=== PATIENT | male | born 1960 | race Caucasian/White ===

== ENCOUNTER 2018-07-08 06:11 | Day surgery (SDC) | payer BC, SELFPAY ==
[2018-07-08 06:23] VITALS: BP 125/83; PULSE 65; RESP 16; TEMP 36.7; O2SAT 100
--- NOTE | 2018-07-08 06:46 | HPE_ITS ---
Assessment and Plan (1) Encounter for screening colonoscopy: Current visit: Yes Status: Acute P\\ Colonoscopy under sedation Risks, benefits and complications have been reviewed. Complications include but are not limited to bleeding, pain, perforation, missed small lesion/ polyp, sore throat, aspiration and adverse reaction to the medications. Questions were entertained and answered to their satisfaction and they wished to proceed. No guarantees were given or implied. (2) Family history of colon cancer in mother: Current visit: Yes Status: Acute History of Present Illness Narrative: Mr. Saldivar was seen in the office in March for an umbilical hernia and a colonoscopy. He is here now for the Colonoscopy. He has a family history of colon cancer in his mother in her early 70's. His last Colonoscopy was 6 years ago and was normal. He denies any changes in bowel habits, melena, hematochezia, abdominal pain or unintentional weight loss. There have been no new issues since he was seen in March. Review of Systems Constitutional Reports system reviewed and no additional complaints, except as docu Cardiovascular Denies chest pain, Denies chest pain at rest, Denies chest pain with activity, Denies diaphoresis, Denies dyspnea and Denies dyspnea on exertion Respiratory Denies dyspnea and Denies dyspnea on exertion PFS Family History Mother Personal history of malignant neoplasm Father No problems noted. Grandfather No problems noted. Grandfather No problems noted. Grandmother No problems noted. Grandmother No problems noted. PATERNAL GREAT UNCLE Personal history of malignant neoplasm Sister No problems noted. Brother No problems noted. Medical History Depression Erectile dysfunction Family history of colon cancer Umbilical hernia Social History Smoking/Tobacco Use Status: Former Tobacco Use Surgical History Colonoscopy - MAC (07/07/13) Meds Home Medications Medication Instructions Recorded Confirmed Type loperamide [Imodium A-D] 1 mg PO DAILY NS 07/02/13 07/08/18 History sertraline 100 mg PO DAILY #90 tab 10/24/17 07/08/18 Rx sildenafil [Viagra] 100 mg PO PRN #5 tab MDD 100mg 10/24/17 07/08/18 Rx loratadine-pseudoephedrine 1 tab-cap PO DAILY tab-cap 03/05/18 07/08/18 History [Claritin-D 24 Hour Tablet] multivitamin [Multi-Vitamin Daily] 1 ea PO DAILY 03/05/18 07/08/18 History Allergies Allergy/AdvReac Type Severity Reaction Status Date / Time No Known Allergies Allergy Unverified 07/08/18 06:31 Exam Const General: comfortable and no acute distress Resp Effort & Inspection: normal respiratory effort Auscultation: clear to auscultation bilaterally Cardio Rate: regular rate Rhythm: regular rhythm Heart Sounds: no gallops, no murmurs and no rubs
--- NOTE | 2018-07-08 06:46 | W.COLOREPORT ---
Date of service: 07/08/18 Colonoscopy Report Date of procedure: 07/08/18 Pre-op diagnosis general: Screening and Family history Post-op diagnosis procedure note: other (polyps) Procedure: Colonoscopy with polypectomy Surgeon: Priya Sharpe Anesthesia proc note operative: MAC (Wyatt Daniels CRNA) Estimated blood loss (mL): 5 Pathology: other (ascending polyp and descending polyp x 2) Complications: None Disposition: same day Indications: Mr. Saldivar is a pleasant 57 year old male seen in the office to discuss a colonoscopy. He has a family history of colon cancer. His last Colonoscopy was normal. Risks, benefits and complications have been reviewed. Complications include but are not limited to bleeding, pain, perforation, missed small lesion/polyp, sore throat, aspiration and adverse reaction to the medications. Questions were entertained and answered to their satisfaction and they wished to proceed. No guarantees were given or implied. Prep: Miralax/Dulcolax Procedure Start Time: 07:30 Procedure End Time: 08:06 Retraction Time: 19 minutes Findings: 3 polyps Procedure Description: After informed consent was obtained the patient was taken to the procedure room and placed in a left decubitous position. Monitors were applied and a time out was done. The patients name, date of , procedure, allergies to medications and metal in their body was reviewed. The patient was then sedated. Once sedated and comfortable a rectal exam was done. External exam was normal. Internal exam revealed a normal sphincter tone and no palpable masses. The scope was then introduced and retrofelexed. No internal hemorrhoids were identified. The scope was then advanced to the cecum with difficulty. The TI and appendiceal orifice were identified. The prep was good. The scope was then slowly retracted over 19 minutes back into the rectum. 3 polyps were removed. One in the ascending colon and 2 in the descending colon at 40 cm. The scope was removed and the patient was woken up and taken back to Same day surgery in stable condition. The patient tolerated the procedure well and there were no immediate complications. Follow up: The patient should follow up in 3-5 years unless they develop changes in bowel habits or other new gastrointestinal complaints.
--- NOTE | 2018-07-08 06:50 | PDOC.DSDIS_ITS ---
Discharge Plan Disposition Patient Disposition: HOME Condition: Good Discharge Details Reason For Visit: SCREENING / FAM HX Attending Provider: Priya Sharpe Primary Care Provider: Xiang Dickerson Home Meds and New Rx's Prescriptions: Continue loperamide [Imodium A-D] 1 MG/7.5 ML liquid 1 mg PO DAILY RF: 0 sertraline 100 MG tablet 100 mg PO DAILY Qty: 90 RF: 4 sildenafil [Viagra] 100 MG tablet 100 mg PO PRN MDD 100mg Qty: 5 RF: 6 multivitamin [Daily Multi-Vitamin] 1 EACH tablet 1 ea PO DAILY RF: 0 loratadine-pseudoephedrine [Claritin-D 24 Hour] 1 EACH tablet extended release 24 hr 1 tab-cap PO DAILY RF: 0 Discharge Instructions Instructions: Colonoscopy (DC) Additional Instructions: Findings: 3 polyps Follow up: 3-5 years New medications: none Please call if you develop: fevers >101.5 Nausea or Vomiting Abdominal pain that is not transient 1. Because there will be medication in your system for the next 24 hours, you may feel a little sleepy. Your coordination will be affected. Therefore: a. Do not drive or operate dangerous equipment for 24 hours. b. Do not drink alcohol beverages for 24 hours (not even beer). c. Plan to go home and rest for the day. 2. Generally there are no restrictions on your activity after a day or so has gone by, but you may feel a bit fatigued for a few days. 3 After you arrive home you may have a light meal and return to a normal diet as you can tolerate it without feeling sick to your stomach. 4. After surgery, you may feel pain or discomfort. This should be only transient , but if it persists please contact your doctor. 5. If there are any questions regarding the findings of your procedure, please feel free to contact your doctor. 6. If you are unable to contact your doctor with a problem, contact the hospital at [phone]. 7. Continue all your regular medications unless directed otherwise. I understand the above instructions and have no questions. Signature of Patient or Responsible Adult Escort Date/Time Name of Responsible Adult Escort Signature of Nurse Date/Time Stand Alone Forms: Mook Rodriguez (CELSOU) Activity:: Activity as Tolerated Activity:: Activity as Tolerated Diet:: Normal Diet Discharge Orders Discharge Orders: Discharge Order (Routine); Ordered 07/08/18 Ordered By: Priya Sharpe DS: Diagnosis Discharge Diagnosis (1) Encounter for screening colonoscopy: Status: Acute (2) Family history of colon cancer in mother: Status: Acute
[2018-07-08] MEDS: Lactated Ringers 1,000 ML 80 ML IV (06:51)
--- NOTE | 2018-07-08 07:35 | BOWEL_PTH ---
PATIENT: Omar Saldivar LOC: [facility] U#:[id number] AGE/SX: 57/M ROOM: RE07/08/[address]: Priya Sharpe MD : 1960 BED: DIS: 07/08/2018 SPEC #: [id number] RECD: 07/08/18 11:58 STATUS: [place] REQ #: [id number] VIKA: 07/08/18 07:[address]: Priya Sharpe DEPT: Surgical Specimen RECD BY: Geraldine Cortes ENTERED: 07/08/18 11:59 SP TYPE: Bowel OTHR DR: Xiang Dickerson DO Tissues: 1 - BIOPSY BOWEL 2 - BIOPSY BOWEL Procedures: GROSS AND MICRO LEVEL 4 Comments: [id number]
[2018-07-08 08:36] VITALS: BP 110/71; PULSE 62; RESP 18; TEMP 36.6; O2SAT 97
== END 2018-07-08 09:10 | disposition home or self-care (01) ==
PROVIDERS: PCP Emergency Medicine; Visit Provider Surgery
PROC: 0DJD8ZZ Inspection of Lower Intestinal Tract, Via Natural or Artificial Opening Endoscopic (ICD-10-PCS; CPT 45378; principal; 2018-07-08 07:30)
DX: Z12.11 Encounter for screening for malignant neoplasm of colon (principal); Z83.71 Family history of colonic polyps; D12.2 Benign neoplasm of ascending colon; D12.4 Benign neoplasm of descending colon
CPT/HCPCS: 45380; 88305; NC

== ENCOUNTER 2018-07-11 06:15 | Day surgery (SDC) | payer BC, SELFPAY ==
--- NOTE | 2018-07-11 06:24 | HPE_ITS ---
Assessment and Plan (1) Umbilical hernia without mention of obstruction or gangrene: Current visit: No Status: Acute A\\ Umbilical hernia P\\ Umbilical Hernia repair with mesh Risks, benefits and complications were reviewed. Complications include but are not limited to bleeding, pain, infection, wound dehiscence, recurrence, injury to underlying bowel and adverse reaction to the medications. Questions were entertained and answered to their satisfaction and they wished to proceed. No guarantees were given or implied. History of Present Illness Narrative: Mr. Saldivar was seen in March to discuss a colonoscopy and umbilical hernia repair. He underwent a colonoscopy 3 days ago without issues. He is here today to have his umbilical hernia repair. There have been no changes in his health since he was seen a couple of days ago. he has recovered from his Colonoscopy. NO new issues with his hernia. Review of Systems Constitutional Reports system reviewed and no additional complaints, except as docu Cardiovascular Reports system reviewed and no additional complaints, except as docu Respiratory Reports system reviewed and no additional complaints, except as docu PFS Family History Mother Personal history of malignant neoplasm Father No problems noted. Grandfather No problems noted. Grandfather No problems noted. Grandmother No problems noted. Grandmother No problems noted. PATERNAL GREAT UNCLE Personal history of malignant neoplasm Sister No problems noted. Brother No problems noted. Medical History Depression Erectile dysfunction Family history of colon cancer Umbilical hernia Social History current occupation: [employer] Smoking/Tobacco Use Status: Former Tobacco Use alcohol intake: current alcohol intake frequency: a few times a week substance use type: does not use Surgical History Colonoscopy - MAC (07/07/13) Meds Home Medications Medication Instructions Recorded Confirmed Type loperamide [Imodium A-D] 1 mg PO DAILY NS 07/02/13 07/08/18 History sertraline 100 mg PO DAILY #90 tab 10/24/17 07/08/18 Rx sildenafil [Viagra] 100 mg PO PRN #5 tab MDD 100mg 10/24/17 07/08/18 Rx loratadine-pseudoephedrine 1 tab-cap PO DAILY PRN tab-cap 03/05/18 07/08/18 History [Claritin-D 24 Hour] multivitamin [Daily Multi-Vitamin] 1 ea PO DAILY 03/05/18 07/08/18 History Allergies Allergy/AdvReac Type Severity Reaction Status Date / Time No Known Allergies Allergy Unverified 07/08/18 06:31 Exam Resp Effort & Inspection: normal respiratory effort Auscultation: clear to auscultation bilaterally Cardio Rate: regular rate Rhythm: regular rhythm Heart Sounds: no gallops, no murmurs and no rubs GI Palpation: soft, no hepatosplenomegaly and hernia umbilical (reducible)
--- NOTE | 2018-07-11 06:31 | W.PM.DSUDISC ---
Discharge Plan Disposition Patient Disposition: HOME Condition: Good Discharge Details Reason For Visit: Umbilical hernia Attending Provider: Priya Sharpe Primary Care Provider: Xiang Dickerson Home Meds and New Rx's Prescriptions: New acetaminophen [Tylenol 8 Hour] 650 mg tablet extended release 650 mg PO Q6H PRN PRN (Reason: pain) Qty: 30 RF: 0 ibuprofen 600 mg tablet 600 mg PO QID PRN (Reason: pain) Qty: 30 RF: 0 Continue loperamide [Imodium A-D] 1 MG/7.5 ML liquid 1 mg PO DAILY RF: 0 sertraline 100 MG tablet 100 mg PO DAILY Qty: 90 RF: 4 sildenafil [Viagra] 100 MG tablet 100 mg PO PRN MDD 100mg Qty: 5 RF: 6 multivitamin [Daily Multi-Vitamin] 1 EACH tablet 1 ea PO DAILY RF: 0 loratadine-pseudoephedrine [Claritin-D 24 Hour] 1 EACH tablet extended release 24 hr 1 tab-cap PO DAILY PRNRF: 0 Discharge Instructions Instructions: Ventral Hernia Repair (DC) Additional Instructions: Please call if you develop: fevers >101.5 Nausea or Vomiting Redness and hot to the touch around the incision Thick discharge from the incision Worsening abdominal pain Medication: Ibuprofen 600 mg every 6 hours as needed Tylenol 1000 mg every 6 hours as needed for pain Miralax as needed for constipation Other: may use ice over the incision as needed for swelling, bruising and pain May shower starting tomorrow Do not soak the incision for 1 week 1. Because there will be medication in your system for the next 24 hours, you may feel a little sleepy. Your coordination will be affected. Therefore: a. Do not drive or operate dangerous equipment for 24 hours. b. Do not drink alcohol beverages for 24 hours (not even beer). c. Plan to go home and rest for the day. 2. Generally the only restriction on your activity is no lifting, pulling or pushing more then 20 lb for 4 weeks. You may feel fatigued for 2-4 weeks. 3 After you arrive home you may have a light meal and return to a normal diet as you can tolerate it without feeling sick to your stomach. 4. After surgery, you may feel pain or discomfort. Take the medications as prescribed. 5. If there are any questions regarding the findings of your procedure, please feel free to contact your doctor. 6. If you are unable to contact your doctor with a problem, contact the hospital at [phone]. 7. Continue all your regular medications unless directed otherwise. 8. IF you are being prescribed a Narcotic pain medication. Narcotic pain medications have an addiction potential for everyone. It is important that you take the medication as prescribed There is a limit on how many tablets we can prescribed, this has been decided by the state Please keep the medications in a secure place and do not let anyone know you have them at home If you have medication left over please discard them by crushing them in a little water and mixing in used coffee grounds or cat litter and putting in the trash. I understand the above instructions and have no questions. Signature of Patient or Responsible Adult Escort Date/Time Name of Responsible Adult Escort Signature of Nurse Date/Time Referrals: Priya Sharpe MD [ [facility] STAFF PHYSICIAN] - 07/23/18 2:00 pm Activity:: No lifting,pulling or pushing >20 lb x 4 weeks Diet:: As Tolerated DS: Diagnosis Discharge Diagnosis (1) Umbilical hernia without mention of obstruction or gangrene: Status: Acute
[2018-07-11 06:35] VITALS: BP 127/85; PULSE 65; RESP 18; TEMP 36.2; O2SAT 98
[2018-07-11] MEDS: Lactated Ringers 1,000 ML 80 ML IV (06:47)
[2018-07-11] MEDS: Normal Saline 10 ML VIAL IJ (07:45)
[2018-07-11] MEDS: Lidocaine 2% Pres-Free 5 ML VIAL 10 ML (08:02)
[2018-07-11 08:46] VITALS: BP 121/74; PULSE 67; RESP 17; TEMP 36.6; O2SAT 95
[2018-07-11 08:50] VITALS: BP 116/69; PULSE 67; RESP 17; TEMP 36.6; O2SAT 95
[2018-07-11 08:55] VITALS: BP 130/80; PULSE 67; RESP 16; TEMP 36.6; O2SAT 97
[2018-07-11 09:10] VITALS: BP 135/87; PULSE 72; RESP 15; TEMP 36.6; O2SAT 97
[2018-07-11 10:01] VITALS: BP 133/77; PULSE 71; RESP 16; TEMP 35.6; O2SAT 97
--- NOTE | 2018-07-11 11:07 | ROE_ITS ---
REPORT OF OPERATIVE PROCEDURE DATE OF PROCEDURE July 11, 2018 PREOPERATIVE DIAGNOSIS Reducible umbilical hernia. POSTOPERATIVE DIAGNOSIS Reducible umbilical hernia. PROCEDURE Umbilical hernia repair with Ventralex hernia patch. ANESTHESIA 1. General anesthesia with LMA 2. Bilateral rectus muscle block ANESTHESIA PROVIDER Shadi Stewart C.R.N.A. SURGEON Nehemias Sharpe M.D. AGRONOMY LOCATION MANAGER HAKEEM Her None. ESTIMATED BLOOD LOSS Less than 20 cc. COMPLICATIONS No immediate complications INDICATIONS FOR PROCEDURE Mr. Saldivar is a pleasant 57-year-old gentleman with a reducible umbilical hernia, which started to ca use him discomfort with activities. The risks, benefits, and complications were reviewed with the pat ient and he wished to proceed. No guarantees were given or implied. FINDINGS A 2 x 2 cm umbilical hernia defect. DESCRIPTION OF PROCEDURE After informed consent was obtained, the patient was taken to the Operating Room and placed in the kim pine position. Monitors were applied and he was placed under general anesthesia with LMA by Shadi cardenas CRNA. Michelle MoultonNAlka, then did a bilateral rectus muscle block for postoperative pain. Please see separate dictation for this. Once the block was in place, SCDs were applied and a timeout was done. The patient's name, date of , procedure site and type, allergies to medications and D VT prophylaxes, and antibiotic given were all reviewed. Fire risk was also reviewed. The abdomen was re-prepped and draped in a sterile surgical fashion. 5 cc of 2% lidocaine was injected in the dermis underneath the umbilicus. An incision was made with a #15-blade and dissection was done with cautery through subcutaneous tissue down to the fascia. A Ирина was then used to get around the umbilical st alk and this was cut using cautery. Once the umbilical stalk was transected, the sac was identified a nd trimmed down to the fascia and removed. Some bleeding was noted from the fascia and this was caref ully cauterized. The bowel was kept out of reach with gently pushing down on it with a hemostat. Once the bleeding was stopped, a 2.6-inch round Ventralex mesh was placed under the fascia and secured in four corners with #2-0 Prolene. Once secured in place, the fascia was reapproximated using #0- Vicry l. The umbilical stalk was then reattached to the fascia using #0-Vicryl. The subcutaneous tissue was reapproximated with #3-0 Vicryl and the dermis was closed with #4-0 Vicryl running suture. The skin was cleaned and dried, and then Skin Affix was applied. The patient tolerated the procedure well. Sponge, instruments and needle counts were correct at the end of the case. At this point, the patient was woken up, the LMA was removed and he was taken to Recovery in stable c ondition.
== END 2018-07-11 10:40 | disposition home or self-care (01) ==
PROVIDERS: PCP Emergency Medicine; Visit Provider Surgery
PROC: (CPT 49585; principal; 2018-07-11 07:30)
DX: K42.9 Umbilical hernia without obstruction or gangrene (principal)
CPT/HCPCS: 49585; 76942; NC; C1781; J0131; J0690; J1100; J1885; J2250; J2405

== ENCOUNTER 2020-08-27 02:01 | Outpatient (CLI) | payer BC, SELFPAY ==
[2020-08-30 21:56] LABS: Patient Race White; SARS-CoV-2 RNA Undetected (Undetected); SARS-CoV-2 Specimen Source Nasal
== END 2020-08-27 02:21 ==
PROVIDERS: PCP Emergency Medicine; Visit Provider Emergency Medicine
DX: Z11.59 Encounter for screening for other viral diseases (principal)
CPT/HCPCS: U0003

== ENCOUNTER 2021-01-17 03:22 | Outpatient (CLI) | payer BC, SELFPAY ==
[2021-01-18 14:14] LABS: COVID-19 RT-PCR UVMMC Result Negative (Negative)
== END 2021-01-17 03:23 | disposition home or self-care (01) ==
LOC: LBO 03:22
PROVIDERS: PCP Emergency Medicine; Visit Provider Emergency Medicine
DX: Z20.822 Contact with and (suspected) exposure to COVID-19 (principal); Z01.818 Encounter for other preprocedural examination
CPT/HCPCS: U0003

== ENCOUNTER 2021-11-09 03:31 | Outpatient (CLI) | payer BC, SELFPAY ==
[2021-11-09 10:11] LABS: Calculated LDL 106 mg/dL (<100); Cholesterol 174 mg/dL (<200); HDL Cholesterol 41 mg/dL (40-60); Triglyceride 138 mg/dL (<150)
[2021-11-09 16:43] LABS: PSA, Screening 0.6 ng/mL (0.0-3.5)
== END 2021-11-09 03:32 | disposition home or self-care (01) ==
LOC: LBO 03:31
PROVIDERS: Emergency Medicine; PCP Family Medicine; Visit Provider Family Medicine
DX: Z00.00 Encounter for general adult medical examination without abnormal findings (principal); Z12.5 Encounter for screening for malignant neoplasm of prostate
CPT/HCPCS: 36415; 80061; 84153

== ENCOUNTER 2022-03-31 11:51 | Outpatient (CLI) | payer BC, SELFPAY ==
--- NOTE | 2022-03-31 11:18 | DI.RAD_ITS ---
Exam(s) XR FINGER RT MIDDLE EXAM: XR FINGER RT MIDDLE CLINICAL HISTORY: Injury right 3rd digit--S69.90XA. TECHNIQUE: 2D digital imaging was performed of the right finger. Three views were obtained. PA/AP, oblique, and lateral views were obtained. COMPARISON: No exams were available for comparison FINDINGS: BONES: There is a nondisplaced oblique fracture through the distal aspect of the middle phalanx of th e right middle finger. The fracture appears to extend into the head. No bony destructive lesion is seen. JOINTS: No dislocation present. SOFT TISSUE: There is mild soft tissue swelling of the middle finger. IMPRESSION: Nondisplaced oblique fracture through the head of the middle phalanx of the right middle finger. DATA REPOSITORY: RADIATION DOSE DELIVERED:
== END 2022-03-31 12:11 ==
LOC: DI 11:55
PROVIDERS: Visit Provider Physician Assistant
DX: S62.652A Nondisplaced fracture of middle phalanx of right middle finger, initial encounter for closed fracture (principal); X58.XXXA Exposure to other specified factors, initial encounter
CPT/HCPCS: 73140

== ENCOUNTER 2022-04-04 10:16 | Day surgery (SDC) | payer BC, SELFPAY ==
--- NOTE | 2022-04-03 15:31 | W.COLOREPORT ---
Colonoscopy Report Date of procedure: 04/04/22 Pre-op diagnosis general: S. serrated/+CRC- Mother Post-op diagnosis procedure note: other (normal) Surgeon: Janey Tomas Anesthesia Type: General:No Airway Estimated blood loss (mL): 0 Pathology: none sent Complications: None Disposition: same day Prep: Miralax/Dulcolax Procedure Description: After informed consent was obtained the patient was taken to the procedure room and placed in a left decubitous position. Monitors were applied and a time out was done. The patients name, date of , procedure, allergies to medications and metal in their body was reviewed. The patient was then sedated. Once sedated and comfortable a rectal exam was done. External exam was normal. Internal exam revealed a normal sphincter tone and no palpable masses. The scope was then introduced and retrofelexed. No internal hemorrhoids were identified. The scope was then advanced to the cecum w/out difficulty. The TI and appendiceal orifice were identified. The prep was BBPS 3 in all segments for a total of 9. The scope was then slowly retracted over 8 minutes back into the rectum. There are no polyps/avm's/diverticula visualized. The scope was removed and the patient was woken up and taken back to Same day surgery in stable condition. The patient tolerated the procedure well and there were no immediate complications. Follow up: The patient should follow up in 5 years unless they develop changes in bowel habits or other new gastrointestinal complaints.
--- NOTE | 2022-04-03 15:32 | PDOC.DSDIS_ITS ---
Discharge Plan Disposition Patient Disposition: HOME Condition: Good Discharge Details Reason For Visit: colon scope Attending Provider: Janey Tomas Primary Care Provider: Pamella Mullen Home Meds and New Rx's Prescriptions: Continued aspirin 81 mg tablet,delayed release (DR/EC) 81 mg PO DAILY loperamide [Imodium A-D] 1 MG/7.5 ML liquid 1 mg PO DAILY multivitamin [Daily Multi-Vitamin] 1 EACH tablet 1 ea PO DAILY loratadine-pseudoephedrine [Claritin-D 24 Hour] 1 EACH tablet extended release 24 hr 1 tab-cap PO DAILY PRN sildenafil [Viagra] 100 mg tablet 100 mg PO PRN MDD 100mg Qty: 5 6RF sertraline 100 mg tablet 100 mg PO DAILY Qty: 90 4RF acetaminophen [Tylenol 8 Hour] 650 mg tablet extended release 650 mg PO Q6H PRN PRN (Reason: pain) Qty: 30 0RF ibuprofen 600 mg tablet 600 mg PO QID PRN (Reason: pain) Qty: 30 0RF Discontinued bisacodyl [Dulcolax (bisacodyl)] 5 mg tablet,delayed release (DR/EC) 5 mg PO ONCE Qty: 4 0RF Rx Instructions: Take according to provider's instructions for colonoscopy prep. polyethylene glycol 3350 17 gram/dose powder 17 g PO ONCE Qty: 238 0RF Rx Instructions: To be taken as directed by prescriber's office for colonoscopy prep. Discharge Instructions Additional Instructions: DSU Colonoscopy Post- Op Instructions Instructions for Everyone who is given Anesthesia: For your safety, please do the following for the next twenty-four (24) hours: *Do Not operate a motor vehicle (car, truck, motorcycle, etc.) *Do Not drink alcoholic beverages or use any recreational drugs for the first 24 hours or while taking pain medications. The medications in your body may have a reaction that can be dangerous. *Do Not make any important decisions or sign any important papers. Findings: normal Follow up: 5 years 1. No lifting over 20 pounds or strenuous activity for the first 24 hours after your procedure. After 24 hours there are no restrictions on your activity but you may feel fatigued for a few days. 2. After you arrive home you may have a light meal and return to your normal diet as you can tolerate it without feeling sick to your stomach. 3. You may have a bloated, gaseous feeling in your belly (abdomen) after a colonoscopy. Passing gas and belching will help. Walking or lying down on your left side with your knees flexed may relieve the discomfort. Call the office at [phone] (Office) or [phone] (Hospital) right away if you notice any of the following: a.Vomiting of blood or ?coffee ground stools?. b.Rectal bleeding 1Tbsp, blood clots or continuous bleeding. c.Severe belly (abdominal) pain. d.A hard distended belly (abdomen) and an inability to pass gas. 4. Please don?t expect to have a normal BM (bowel movement) for 2-3 days after your procedure. 5. If there are questions regarding the findings of your procedure, please contact your doctor 6. If you are unable to contact your doctor with a problem, contact the hospital at [phone]. 7. Continue all your regular medications unless directed otherwise. I understand the above instructions and have no questions. Signature of Patient or Adult Escort Name of Responsible Adult Escort Signature of Nurse Date/Time Activity:: See above Diet:: See above Discharge Orders Discharge Orders: Discharge Order (Routine); Ordered 04/03/22 Ordered By: Janey Tomas
[2022-04-04 10:32] VITALS: BP 131/87; PULSE 57; RESP 16; TEMP 36.4; O2SAT 100
--- NOTE | 2022-04-04 10:52 | W.ANESPRE ---
General Info Date of Service Date Performed: 04/04/22 Height: 6 ft 1.5 in Weight: 92.6 kg Body Mass Index (BMI): 26.5 Surgical Procedure: Operation Date: 04/04/22 10:05 Proposed Procedure Side Surgeon lyn Tomas, DO Meds Allergies and Home Medications Allergies Allergy/AdvReac Type Severity Reaction Status Date / Time No Known Allergies Allergy Verified 04/04/22 10:36 Home Medication Medication Instructions Recorded Imodium A-D 1 mg/7.5 mL oral 1 mg PO DAILY 07/02/13 liquid (loperamide) loratadine-pseudoephedrine ER 10 1 tab-cap PO DAILY PRN 03/05/18 mg-240 mg tablet,extended [id number] (Claritin-D 24 Hour) multivitamin (Daily Multi-Vitamin 1 ea PO DAILY 03/05/18 tablet) acetaminophen 650 mg 650 mg PO Q6H PRN PRN pain #30 tabs 07/11/18 tablet,extended release (Tylenol 8 Hour) ibuprofen 600 mg tablet 600 mg PO QID PRN pain #30 tabs 07/11/18 aspirin 81 mg tablet,delayed 81 mg PO DAILY 09/14/20 release sildenafil 100 mg tablet (Viagra) 100 mg PO PRN #5 tabs 06/24/21 sertraline 100 mg tablet 100 mg PO DAILY #90 tabs 07/15/21 bisacodyl 5 mg tablet,delayed 5 mg PO ONCE #4 tabs 03/24/22 release (Dulcolax (bisacodyl)) polyethylene glycol 3350 17 17 g PO ONCE #238 grams 03/24/22 gram/dose oral powder Current Visit Medications: Current Medications Generic Name Dose Route Start Last Admin Trade Name Freq PRN Reason Stop Dose Admin Hyoscyamine Sulfate 0.125 mg 04/04/22 06:00 Hyoscyamine 0.125 Mg Sl/Oral/Chew SL 04/04/22 23:59 DIRECTED PRN Ringer's Solution 1,000 mls @ 80 mls/hr 04/04/22 06:00 IV 05/03/22 23:59 INFUSION GWYN IV Miscellaneous Supplies 1 each 04/04/22 06:00 Iv Access IV 05/03/22 23:59 DIRECTED GWYN Ondansetron HCl 4 mg 04/04/22 06:00 Ondansetron 4 Mg/2 Ml Vial IVP 04/04/22 23:59 Q4H PRN PRN Nausea / Vomiting Sodium Chloride 0 ml 04/04/22 06:00 Normal Saline Flush 10 Ml Syr IV 05/03/22 23:59 PRN PRN Sodium Chloride 0 ml 04/04/22 06:00 Normal Saline 10 Ml Vial IJ 05/03/22 23:59 DIRECTED PRN Sterile Water 0 ml 04/04/22 06:00 Water,Injection,Sterile 10 Ml Vial IJ 05/03/22 23:59 DIRECTED PRN PFSH Active Problems Active Problems: Problem Status Onset Code Encounter for annual physical exam Z00.00 Family history of colon cancer Depression Smoker F17.200 Sessile colonic polyp ~07/2018 K63.5 Umbilical hernia 03/16/15 K42.9 Tobacco chew use 10/10/16 Z72.0 Smoker F17.200 Polyp of colon 07/17/13 K63.5 Male erectile disorder 06/20/13 N52.9 Incomplete RBBB 10/09/14 I45.10 Family history of colon cancer 06/20/13 Z80.0 Depressive disorder F32.9 Umbilical hernia without mention of obstruction or gangrene K42.9 Family history of colon cancer in mother Z80.0 Encounter for screening colonoscopy Z12.11 Medical History Medical History Erectile dysfunction Umbilical hernia (~07/2018) Surgical History Surgical History (Updated 04/04/22 @ 10:57 by Mady Chow) Colonoscopy - MAC (07/08/18) H/O surgical amputation of finger H/O umbilical hernia repair (~07/11/18) Tobacco Smoking/Tobacco Use Status: Former Tobacco Use Smokeless tobacco user: chewing tobacco Passive smoking exposure: Yes Second hand exposure: Yes Alcohol Alcohol Intake: former Substance Use Substance use: Daily Details: chews tobacco daily-last 04.03.22 Vital Signs and Lab Results Vital Signs Most Recent Vital Signs in EMR: Most Recent Vital Signs Temp Pulse Resp BP Pulse Ox 36.4 C L 57 L 16 131/87 100 04/04/22 10:32 04/04/22 10:32 04/04/22 10:32 04/04/22 10:32 04/04/22 10:32 Lab Results Blood Type / Crossmatch: No Data to Display Complete Blood Count: No Data to Display Complete Metabolic Panel: No Data to Display Liver Function Panel: No Data to Display Coagulation Panel: No Data to Display Cardiac Panel: No Data to Display Arterial Blood Gas: No Data to Display Venous Blood Gas: No Data to Display Pancreas Panel: No Data to Display Thyroid Panel: No Data to Display Infectious Disease: No Data to Display Blood Cultures: No Data to Display Toxicology Panel: No Data to Display Anesthesia Assessment and Plan Anesthesia History Personal History: No History of Anesthesia Complications Family History: No Family History of Anesthesia Complications Exercise Tolerance Exercise Tolerance: Metabolic Equivalents>4 Pertinent Negatives Pertinent Negatives: No Symptoms of GERD, No Major Cardiovascular Symptoms or Complaints, No Major Pulmonary Symptoms or Complaints and No History of CVA/TIA Cardiac & Pulmonary Exam Cardiac Exam: Normal S1/S2 Heart Sounds Pulmonary Exam: Clear Bilateral Breath Sounds Implantable Cardiac Device Does patient have a Pacemaker or an ICD?: No Airway Exam Known Difficult Airway: No Mallampati Class: 2 Mouth Opening: Normal (> 3cm) Thyromental Distance: Greater than 3 cm Neck Range of Motion: Full ROM Neck Circumference: Normal Teeth Condition: Normal Dentition ASA Classification ASA Score: ASA 2 Emergency Case?: No NPO Status NPO Status: NPO Clears >2 hours, Solids >8 hours Anesthesia Plan Resuscitation Status: Full Code Anesthesia Technique: General Anesthesia Airway Planned: Natural Airway Monitors Used: Standard Monitors
[2022-04-04] MEDS: Lactated Ringers 1,000 ML 80 ML IV (10:55)
[2022-04-04 11:43] VITALS: BMI 26.5
[2022-04-04 11:58] VITALS: BP 86/72; PULSE 57; RESP 16; TEMP 36.3; O2SAT 97
[2022-04-04 12:30] VITALS: BP 109/71; PULSE 56; RESP 16; TEMP 36.5; O2SAT 99
--- NOTE | 2022-04-04 13:51 | W.ANESPOSTOP ---
Postoperative Evaluation Date, Time and Location Date Performed: 04/04/22 Time Performed: 13:51 Patient Location: Day Surgery Unit Vital Signs Most Recent Imported Vital Signs: Most Recent Vital Signs Temp Pulse Resp BP Pulse Ox 36.5 C 56 L 16 109/71 99 04/04/22 12:30 04/04/22 12:30 04/04/22 12:30 04/04/22 12:30 04/04/22 12:30 Pain Score Most Recent Pain Score: Most Recent Pain Score Pain Level 0 04/04/22 12:30 Assessment Mental Status: Awake (Alert & Oriented to Patient Baseline) Airway and Respiratory Function: Patent airway with normal (patient baseline) respiratory exam Cardiovascular Function: Hemodynamically Stable Hydration Status: Adequately Hydrated Nausea & Vomiting: No Nausea or Vomiting Pain: Pt. Denies Any Pain Peripheral Nerve Block: Patient did not receive a nerve block Postoperative Comments:: Patient seen earlier today and was appropriate for discharge
== END 2022-04-04 12:45 | disposition home or self-care (01) ==
PROVIDERS: Visit Provider Surgery
PROC: 0DJD8ZZ Inspection of Lower Intestinal Tract, Via Natural or Artificial Opening Endoscopic (ICD-10-PCS; CPT 45378; principal; 2022-04-04 10:00)
DX: Z12.11 Encounter for screening for malignant neoplasm of colon (principal); Z86.010 Personal history of colon polyps; Z80.0 Family history of malignant neoplasm of digestive organs
CPT/HCPCS: 45378

== ENCOUNTER 2025-01-22 18:32 | Emergency (ER) | payer BC, SELFPAY ==
[2025-01-22 18:38] VITALS: BP 153/89; PULSE 64; RESP 16; TEMP 36.9; O2SAT 98
--- NOTE | 2025-01-22 18:45 | DI.RAD_ITS ---
Exam(s) XR HAND RT LIMITED EXAM: XR HAND RT LIMITED CLINICAL HISTORY: 5th digit lac distally, 4th digit lac at PIP. TECHNIQUE: 2D digital imaging was performed. COMPARISON: CR XR FINGER RT MIDDLE from 03/31/2022 FINDINGS: 3 views There is a laceration over the dorsal aspect of the distal phalanx of the 5th finger and there is sub jacent transverse fracture at the junction of the proximal and mid thirds of the distal phalanx of th e 5th finger. Fracture does not appear to extend into the DIP joint. There is minimal displacement. This is a deep laceration in this may be an open fracture. There are multiple tiny radiopaque dens ities seen along the lateral aspect of the finger at this level, difficult to determine if these are on the skin or within the finger. IMPRESSION: Open fracture of the distal phalanx of the 5th finger, as described above. Multiple punctate soft ti ssue densities on the opposite side of the same finger. DATA REPOSITORY: RADIATION DOSE DELIVERED:
--- NOTE | 2025-01-22 18:55 | ED.GENADUL_ITS ---
Discharge Plan Disposition Patient Disposition: Home Condition: Good Discharge Details Clinical Impression: Open finger fracture Primary Care Provider: Don Wang ED Provider: Rosetta Bowman Home Meds and New Rx's Prescriptions: New cephalexin 500 mg capsule 500 mg PO QID 5 Days Qty: 20 0RF No Action aspirin 81 mg tablet,delayed release (DR/EC) 81 mg PO DAILY loperamide [Imodium A-D] 1 MG/7.5 ML liquid 1 mg PO DAILY multivitamin [Daily Multi-Vitamin] 1 EACH tablet 1 ea PO DAILY Claritin-D 24 Hour 1 EACH tablet extended release 24 hr 1 tab-cap PO DAILY PRN sildenafil [Viagra] 100 mg tablet 100 mg PO PRN MDD 100mg Qty: 5 6RF sertraline 100 mg tablet 100 mg PO DAILY Qty: 90 4RF acetaminophen [Tylenol 8 Hour] 650 mg tablet extended release 650 mg PO Q6H PRN PRN (Reason: pain) Qty: 30 0RF ibuprofen 600 mg tablet 600 mg PO QID PRN (Reason: pain) Qty: 30 0RF Discharge Instructions Instructions: Clear Liquid Diet Additional Instructions: You will be called by [facility] [place]ics tomorrow morning (by 8 am) to schedule a follow up appointment for re-assessment and management. Please do not eat anything tonight in case surgery in the morning is indicated. You may drink clear liquids only overnight (see attached info on clear liquids). If you are not advised to go in tomorrow for a follow up visit immediately, please ask for directions on how to best care for your wound. You were given a single dose of IV antibiotics and will continue with oral antibiotics at home to prevent infection. Elevate your hand above heart level and use tylenol 650 mg every 4-6 hours as needed for discomfort. Keep your dressing clean and dry and leave your splint in place. Return to emergency care if you develop new fevers/chills, swelling or redness down your hand, severe finger pain, new numbness to your finger, or if you are very worried and need to be rechecked again immediately. Referrals: Don Wang, PUBLIC HEALTH REPRESENTATIVE [Primary Care Provider] - HPI General Date/Time Provider Initiated Documentation: 01/22/25 18:53 . HPI Narrative: Omar is a 64 year old male who presents to the emergency department today for evaluation of R pinky finger laceration. He reports he got cut by a sickle bar mower; this occured earlier in the day (he did not seek care immediately due to other commitments). Bleeding was well controlled with bandage. Was evaluated at urgent care and advised to go to ED. Denies numbness/tingling distal to injury; has usual amount of flexion. Also sustained superficial laceration to R 4th finger. No other injuries reported. 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 Denies immunocompromise, diabetes, or delayed healing. Pt is right handed. UTD for tetanus (within 1 year) Physical exam remarkable for 3 cm length linear laceration to dorsal aspect of distal phalynx just proximal to DIP. Scant oozing. No tendon, bone, or foreign bodies visualized. Pt able to just slightly flex finger, says this is normal ROM for finger. +cap refill, sensation intact. Otherwise able to fully range PIP and MCP. Superficial laceration to dorsal aspect of DIP of 4th finger, full ROM. D/dx includes but is not limited to: open fracture, laceration I independently interpreted the following tests: R hand xray, notable for fracture of distal phalynx of 5th finger of R hand Consulted with Dr Marrufo, orthopedics resident at [facility]. Recommends ancef 2 g IV now and keflex PO prophylaxis. Extensive irrigation (500 cc) and closure with sutures advised; finger to be splinted in extension. Recommends close f/u with orthopedics; they will call in AM; pt ok to take clear liquids but no food in case surgery is recommended. While in the emergency department, Omar received abx. Wound was irrigated extensively with tap water and 500 cc NS. Betadine applied for antisepsis. Wound was explored to the base in a bloodless field. 5 cc 2% lidocaine instilled locally with good effect. 5 simple and 1 horizontal mattress suture (5-0 ethilon) used to approximate wound edges. Reviewed discharge instructions with patient, including instructions for orthopedics f/u, symptomatic management, and red flags indicating need for return to emergency care Related Data Home Medications ?Medication ?Instructions ?Recorded ?Confirmed Imodium A-D 1 mg/7.5 mL oral 1 mg PO DAILY 07/02/01/22/25 liquid (loperamide) loratadine-pseudoephedrine ER 10 1 tab-cap PO DAILY PRN 03/05/18 01/22/25 mg-240 mg tablet,extended [id number] (Claritin-D 24 Hour) multivitamin (Daily Multi-Vitamin 1 ea PO DAILY 03/05/18 01/22/25 tablet) acetaminophen 650 mg 650 mg PO Q6H PRN PRN pain #30 tabs 07/11/18 01/22/25 tablet,extended release (Tylenol 8 Hour) ibuprofen 600 mg tablet 600 mg PO QID PRN pain #30 tabs 07/11/18 01/22/25 aspirin 81 mg tablet,delayed 81 mg PO DAILY 09/14/20 01/22/25 release sildenafil 100 mg tablet (Viagra) 100 mg PO PRN #5 tabs 09/14/23 01/22/25 sertraline 100 mg tablet 100 mg PO DAILY #90 tabs 12/16/24 01/22/25 cephalexin 500 mg capsule 500 mg PO QID 5 days #20 caps 01/22/25 Previous Rx's ?Medication ?Instructions ?Recorded acetaminophen 650 mg 650 mg PO Q6H PRN PRN pain #30 tabs 07/11/18 tablet,extended release (Tylenol 8 Hour) ibuprofen 600 mg tablet 600 mg PO QID PRN pain #30 tabs 07/11/18 sildenafil 100 mg tablet (Viagra) 100 mg PO PRN #5 tabs 09/14/23 sertraline 100 mg tablet 100 mg PO DAILY #90 tabs 12/16/24 cephalexin 500 mg capsule 500 mg PO QID 5 days #20 caps 01/22/25 Allergies Allergy/AdvReac Type Severity Reaction Status Date / Time No Known Allergies Allergy Verified 01/22/25 18:39 General Stated Complaint: Laceration ABBEY: 3 Review of Systems Narrative: see HPI Exam Const General: cooperative, healthy appearing, comfortable, no acute distress and well developed Nutritional Appearance: average body habitus and well nourished Orientation: alert and oriented x3 Resp Effort & Inspection: normal respiratory effort and able to speak in complete sentences Skin Trauma: laceration right 5th finger linear (3 cm length), involves muscle tissue, motor nerve function intact and sensation intact; no pulsatile bleeding, no foreign bodies present and not contaminated Neuro General: patient alert, patient oriented x3, tone normal, moves all extremities and no focal motor deficits Motor: strength 5/5 throughout Sensory Exam: no sensory deficits noted Extrem Other: Course Vital Signs Vital signs: Vital Signs Temperature 36.9 C 01/22/25 18:38 Pulse 64 01/22/25 18:38 Respiratory Rate 16 01/22/25 18:38 Blood Pressure 153/89 H 01/22/25 18:38 Pulse Oximetry 98 01/22/25 18:38 Temperature 36.9 C 01/22/25 18:38 Pulse 64 01/22/25 18:38 Respiratory Rate 16 01/22/25 18:38 Blood Pressure 153/89 H 01/22/25 18:38 Pulse Oximetry 98 01/22/25 18:38 Pain Level 1 01/22/25 18:38 Procedure Laceration Laceration 1: Patient Consented: Verbally Site: hand Side (If applicable): right Description: linear and clean Depth: involves muscle layer Local anesthetic: Lidocaine 2% Amount of anesthesia used (mL): 5 Pre-repair:: wound explored, irrigated extensively and deep structures intact Skin layer closed with: nylon Suture size: 5-0 Number of sutures:: 6 Technique: horizontal mattress and simple, interrupted Medical Decision Making Imaging Data Radiologic Study: Radiologist's impression: Exam(s) XR HAND RT LIMITED EXAM: XR HAND RT LIMITED CLINICAL HISTORY: 5th digit lac distally, 4th digit lac at PIP. TECHNIQUE: 2D digital imaging was performed. COMPARISON: CR XR FINGER RT MIDDLE from 03/31/2022 FINDINGS: 3 views There is a laceration over the dorsal aspect of the distal phalanx of the 5th finger and there is subjacent transverse fracture at the junction of the proximal and mid thirds of the distal phalanx of the 5th finger. Fracture does not appear to extend into the DIP joint. There is minimal displacement. This is a deep laceration in this may be an open fracture. There are multiple tiny radiopaque densities seen along the lateral aspect of the finger at this level, difficult to determine if these are on the skin or within the finger. IMPRESSION: Open fracture of the distal phalanx of the 5th finger, as described above. Multiple punctate soft tissue densities on the opposite side of the same finger. Quality:SDOH Health Related Social Needs: 2 Health related social needs details N/A PFSH All Active Problems (Updated 01/22/25 @ 23:48 by Rosetta Laird) Open finger fracture (Acute) Skin lesion (Acute) Plantar wart of left foot (Acute) Encounter for annual physical exam (Acute) Smoker (Acute) Sessile colonic polyp (Acute ~07/2018) 07/08/18-DR. CAMARA;SESSILE SERRATED ADENOMA Umbilical hernia (Acute 03/16/15) Tobacco chew use (Acute 10/10/16) Polyp of colon (Acute 07/17/13) 07/07/13 DR. Shant MCCLELLAND; T.A. Male erectile disorder (Acute 06/20/13) Incomplete RBBB (Acute 10/09/14) Family history of colon cancer (Acute 06/20/13) MOTHER Depressive disorder (Acute) Umbilical hernia without mention of obstruction or gangrene (Acute) Encounter for screening colonoscopy (Acute) Depression (Acute) Medical History Fracture of middle phalanx of finger of right hand Smoker Family history of colon cancer in mother Family history of colon cancer Umbilical hernia (~07/2018) Erectile dysfunction Surgical History H/O surgical amputation of finger H/O umbilical hernia repair (~07/11/18) Colonoscopy - MAC (07/08/18) Family History Mother Colon cancer Maternal Grandfather No problems noted. Paternal Grandfather No problems noted. Maternal Grandmother No problems noted. Paternal Grandmother No problems noted. PATERNAL GREAT UNCLE Prostate cancer Sister No problems noted. Brother No problems noted. Social History (Updated 03/07/24 @ 12:57 by Ana Ingram) Smoking/Tobacco Use Status: Current every day Tobacco Type: smokeless tobacco Tobacco: How many years used: 20 Smokeless tobacco user: chewing tobacco Quit status: considering quitting Second Hand Exposure: Yes Smoking risk assessment performed?: Yes Alcohol Intake: former Year quit: 2019 Drug use: Never Substance use type: does not use Details: chews tobacco daily-last 4.25.23, Quit Cigarettes 20 years ago Caregiver/Support person: Yes Household members: spouse Housing: house Communication Needs: Hard of Hearing Do you need help understanding health information?: Never current occupation: mechanical systems design engineer Pets and animals: Yes Pets and animals: cat(s), dog(s) and horse(s) Sexually active: Yes Do you think of yourself as: straight/heterosexual Current gender identity: male What is your relationship status?: How often do you talk on the phone with friends or family?: once per week How often do you get together with friends or relatives?: once per week How often do you attend evangelical or rastafari services?: 1-3 times per year Do you belong to any clubs or organized social groups?: yes Panel score (0-1 are the most socially isolated patients): 2 Frequency: daily Allison/Pentecostal: Confucianism Special allison needs: No Seatbelt use: always Helmet use: Yes Helmet use: sometimes Drive intox or ride w/intox driver trainee: No Do you feel safe at home: Yes Do you feel safe in your relationship?: Yes Victim of physical abuse: No Victim of emotional abuse: No Victim of sexual abuse: No Would you like helpful sources: No
[2025-01-22 20:15] VITALS: BP 136/73; PULSE 61; RESP 16; O2SAT 98
--- NOTE | 2025-01-22 20:38 | DI.VRAD_ITS ---
PROCEDURE INFORMATION: Exam: XR Right Hand Exam date and time: 01/22/2025 20:02 Age: 64 years old Clinical indication: Other: 5th digit lac distally, 4th digit lac at pip TECHNIQUE: Imaging protocol: Radiologic exam of the right hand. Views: 1 or 2 views. COMPARISON: CR XR FINGER RT MIDDLE 03/31/2022 11:12 FINDINGS: Bones/joints: Acute fracture, 5th distal phalangeal base without definite intra-articular extension; minimal apex palmar angulation. Overlying 5th digital wound; potentially open fracture. Moderate chronic degenerative changes 4th MCP joint. Scattered interphalangeal degenerative changes. Soft tissues: Benign calcifications in the soft tissues. Soft tissue swelling surrounding the fracture site. 4th and 5th digital swelling. IMPRESSION: 1. Acute fracture, 5th distal phalangeal base without definite intra-articular extension; minimal apex palmar angulation. 2. Overlying 5th digital wound; potentially open fracture. Dictated and Authenticated by: Gina Collins MD. Orderin Esme Sargent MD
[2025-01-22] MEDS: ceFAZolin 2,000 MG in Normal Saline 100 ML 200 MG IVPB (22:53)
[2025-01-22] MEDS: Lidocaine 2% Multi-Dose 20 ML VIAL (23:45)
[2025-01-22] MEDS: Povidone-Iodine Soln. 118 ML BTL (23:47)
== END 2025-01-23 | disposition home or self-care (01) ==
PROVIDERS: Emergency Provider Nurse Practitioner Family; PCP Nurse Practitioner Family
DX: S62.646B Nondisplaced fracture of proximal phalanx of right little finger, initial encounter for open fracture (principal); S61.212A Laceration without foreign body of right middle finger without damage to nail, initial encounter; Z79.01 Long term (current) use of anticoagulants; W31.89XA Contact with other specified machinery, initial encounter; Y93.H9 Activity, other involving exterior property and land maintenance, building and construction; Y92.89 Other specified places as the place of occurrence of the external cause; F17.290 Nicotine dependence, other tobacco product, uncomplicated
CPT/HCPCS: 12002; 96365; 99284; 73120; J0690; J2003